=== PATIENT | female | born 1975 | race Caucasian/White ===

== ENCOUNTER 2016-10-13 09:22 | Emergency (ER) | payer OTHER ==
[2016-10-13 09:27] VITALS: BP 156/91; PULSE 82; TEMP 98.3; BMI 29.2
--- NOTE | 2016-10-13 10:18 | PDOC ---
History of Present Illness - General Chief Complaint: Ear Problem Stated Complaint: EAR PAIN Time Seen by Provider: 10/13/16 09:38 History Source: Patient Exam Limitations: No Limitations - History of Present Illness Initial Comments: 10/13/16 10:12 Patient is here with complaints of right ear pain 3-4 days. Denies fever, denies drainage, denies any other symptoms including cough cold symptoms or sore throat. Uses Q-tips to clean ears Timing/Duration: unsure Severity: mild Associated Symptoms: reports: denies symptoms Past History - Travel Traveled outside of the country in the last 30 days: No Close contact w/someone who was outside of country & ill: No - Past Medical History Allergies/Adverse Reactions: Allergies Allergy/AdvReac Type Severity Reaction Status Date / Time No Known Allergies Allergy Verified 10/13/16 09:26 Home Medications: Ambulatory Orders Metoprolol Succinate [Toprol XL -] 25 mg PO DAILY 02/04/14 HTN: Yes Suicide Attempt (Hx): No - Immunization History Immunization Up to Date: Yes - Psycho/Social/Smoking Cessation Hx Anxiety: No Suicidal Ideation: No Smoking History: Never smoked Number of Cigarettes Smoked Daily: 0 Cigars Per Day: 0 Hx Alcohol Use: No Drug/Substance Use Hx: No Substance Use Type: None Review of Systems - Review of Systems Able to Perform ROS?: Yes Is the patient limited [place] proficient: Yes Constitutional: Yes: See HPI. No: Symptoms Reported, Fever HEENTM: Yes: Symptoms Reported, See HPI, Ear Pain Respiratory: No: Symptoms reported Musculoskeletal: Yes: Symptoms Reported Integumentary: Yes: Symptoms Reported All Other Systems: Reviewed and Negative *Physical Exam - Vital Signs Last Vital Signs Temp Pulse Resp BP Pulse Ox 98.3 F 82 20 156/91 98 10/13/16 09:23 10/13/16 09:23 10/13/16 09:23 10/13/16 09:23 10/13/16 09:23 - Physical Exam General Appearance: Yes: Nourished, Appropriately Dressed. No: Apparent Distress HEENT: positive: SAUL, Normal ENT Inspection, Pharynx Normal. negative: TMs Normal (right TM obscured with hard Cerumen left TM intact and good visual benítez landmarks intact) Neck: positive: Supple. negative: Lymphadenopathy (R), Lymphadenopathy (L) Respiratory/Chest: positive: Lungs Clear, Normal Breath Sounds Musculoskeletal: positive: Normal Inspection Extremity: positive: Normal Capillary Refill, Normal Inspection, Normal Range of Motion Integumentary: positive: Normal Color, Dry, Warm Neurologic: positive: employment specialist II-XII NML intact, Fully Oriented, Alert, Normal Mood/ Affect, Normal Response, Motor Strength 11/09 Medical Decision Making - Medical Decision Making 10/13/16 10:14 Cerumenosis, irrigated with saline *DC/Admit/Observation/Transfer Diagnosis at time of Disposition: Impacted cerumen Qualifiers: Laterality: right Qualified Code(s): H61.21 - Impacted cerumen, right ear - Discharge Dispostion Disposition: HOME Condition at time of disposition: Stable Admit: No - Patient Instructions Printed Discharge Instructions: DI for Removal of Foreign Body From Ear Additional Instructions: Do not use Q-tips, or any other small objects on the inner aspect of the ear canal - may only use Q-tips only on the outside to clean ears Ear wax may be packed by use of Q-tips to the inner canal and become hardened May use hydrogen peroxide 3 times a week to continued keep ear wax soft and able to expel Rinse in shower after hydrogen peroxide instillation to wash ear wax out [id number] preparations also assist in wax buildup Aloe up with private physician or ear nose and throat doctor as needed
== END 2016-10-13 10:51 | disposition home or self-care (01) ==
LOC: JERFT 09:22
PROC: 3E1B78Z Irrigation of Ear using Irrigating Substance, Via Natural or Artificial Opening (ICD-10-PCS; principal; 2016-10-13)
DX: H61.21 Impacted cerumen, right ear (principal)
CPT/HCPCS: 69209; 99281-25

== ENCOUNTER 2017-03-07 12:15 | Emergency (ER) | payer OTHER ==
[2017-03-07 12:18] VITALS: BMI 30.2
[2017-03-07] MEDS ORDERED: KETOROLAC TROMETHAMINE 30 MG/1 ML VIAL IVPUSH ONE (12:58)
[2017-03-07 13:15] LABS: URINE APPEARANCE SLCLOUDY; URINE BILIRUBIN NEGATIVE (NEGATIVE); URINE BLOOD NEGATIVE (NEGATIVE); URINE COLOR LTYELLOW; URINE GLUCOSE (UA) NEGATIVE (NEGATIVE); URINE KETONE 1+ (NEGATIVE); URINE LEUK ESTERASE NEGATIVE (NEGATIVE); URINE NITRITE NEGATIVE (NEGATIVE); URINE PROTEIN NEGATIVE (NEGATIVE); URINE UROBILINOGEN NEGATIVE mg/dL (0.2-1.0)
[2017-03-07 13:16] LABS: BASOPHIL 0.6 % (0-2.0); EOSINOPHIL 2.2 % (0-4.5); MCH 24.2 pg (25.7-33.7); MCHC 32.7 g/dl (32.0-36.0); MEAN CELL VOLUME 74.1 fl (80-96); MEAN PLT VOLUME 6.9 fl (7.5-11.1); NEUTROPHILS 70.6 % (42.8-82.8); PLATELET COUNT 354 K/MM3 (134-434); RDW 18.5 % (11.6-15.6); WHITE BLOOD COUNT 11.4 K/mm3 (4.0-10.0)
[2017-03-07] MEDS ORDERED: KETOROLAC TROMETHAMINE 30 MG/1 ML VIAL ONE (13:23)
[2017-03-07 13:40] LABS: ALBUMIN 4.1 g/dl (3.4-5.0); ALK PHOS 75 U/L (45-117); ANION GAP 10 (8-16); BILIRUBIN,TOTAL 0.5 mg/dL (0.2-1.0); CALCIUM 8.8 mg/dL (8.5-10.1); CO2 26 mmol/L (21-32); CREATININE 0.6 mg/dL (0.55-1.02); GLUCOSE,RANDOM 99 mg/dL (74-106); SGOT/AST 15 U/L (15-37); SGPT/ALT 28 U/L (12-78); TOT PROT 7.8 g/dl (6.4-8.2)
--- NOTE | 2017-03-07 14:03 | PDOC ---
History of Present Illness - General Chief Complaint: Pain Stated Complaint: PAIN/ BACK, ABD Time Seen by Provider: 03/07/17 12:43 History Source: Patient Exam Limitations: No Limitations - History of Present Illness Travel History: No Initial Comments: 03/07/17 13:59 41-year-old female presents the ED with gradually worsening left lower quadrant pain that she describes a sharp and intermittent worsened with urination. Patient denies history of renal colic, recent UTI, fever, chills but does state mild nausea and when the pain comes it causes her to feel faint. Patient denies medical history, recent travel, fever, chills diarrhea, or recent sick contacts. Patient denies irregular menses and states history of ovarian cyst as per her last ultrasound approximately one year ago. Timing/Duration: reports: constant Quality: reports: moderate, sharpness Abdominal Pain Onset Location: reports: LLQ, periumbilical (left), flank (left) Pain Radiation: reports: no radiation Activities at Onset: reports: none Aggravating Factors: improves with: Voiding Alleviating Factors: worse with: None Past History - Travel Traveled outside of the country in the last 30 days: No Close contact w/someone who was outside of country & ill: No - Past Medical History Allergies/Adverse Reactions: Allergies Allergy/AdvReac Type Severity Reaction Status Date / Time No Known Allergies Allergy Verified 03/07/17 12:18 Home Medications: Ambulatory Orders NK [No Known Home Medication] 03/07/17 HTN: Yes Suicide Attempt (Hx): No - Immunization History Immunization Up to Date: Yes - Psycho/Social/Smoking Cessation Hx Anxiety: No Suicidal Ideation: No Smoking History: Never smoked Number of Cigarettes Smoked Daily: 0 Cigars Per Day: 0 Information on smoking cessation initiated: No Hx Alcohol Use: No Drug/Substance Use Hx: No Substance Use Type: None Patient Lives Alone: No Lives with/in: spouse/SO Review of Systems - Review of Systems Able to Perform ROS?: Yes Constitutional: No: Symptoms Reported HEENTM: No: Symptoms Reported Respiratory: No: Symptoms reported ABD/GI: Yes: Nausea, Abdominal cramping. No: Diarrhea, Poor Appetite, Vomiting : No: Symptoms Reported Musculoskeletal: No: Symptoms Reported Integumentary: No: Symptoms Reported Neurological: No: Symptoms reported Endocrine: No: Symptoms Reported Hematologic/Lymphatic: No: Symptoms Reported *Physical Exam - Vital Signs Last Vital Signs Temp Pulse Resp BP Pulse Ox 98.3 F 81 18 148/89 99 03/07/17 12:17 03/07/17 12:17 03/07/17 12:17 03/07/17 12:17 03/07/17 12:17 - Physical Exam General Appearance: Yes: Nourished, Appropriately Dressed. No: Apparent Distress HEENT: negative: Pale Conjunctivae Neck: positive: Supple Respiratory/Chest: positive: Lungs Clear, Normal Breath Sounds. negative: Respiratory Distress, Accessory Muscle Use Cardiovascular: positive: Regular Rhythm, Regular Rate. negative: Murmur Gastrointestinal/Abdominal: positive: Soft, Tenderness (left lower quadrant and left quadrant ) Musculoskeletal: negative: CVA Tenderness, CVA Tenderness (L) Extremity: positive: Normal Capillary Refill. negative: Pedal Edema Integumentary: positive: Normal Color, Warm, Moist Neurologic: positive: Normal Mood/Affect, Motor Strength 5/5 (ambulatory) ED Treatment Course - LABORATORY CBC & Chemistry Diagram: 03/07/17 12:55 03/07/17 12:55 - ADDITIONAL ORDERS Additional order review: Laboratory Results 03/07/17 03/07/17 13:00 12:55 Sodium 135 L Potassium 3.7 Chloride 99 Carbon Dioxide 26 Anion Gap 10 BUN 14 D Creatinine 0.6 Creat Clearance w eGFR > 60 Random Glucose 99 Calcium 8.8 Total Bilirubin 0.5 D AST 15 D ALT 28 D Alkaline Phosphatase 75 D Total Protein 7.8 Albumin 4.1 Urine Color Ltyellow Urine Appearance Slcloudy Urine pH 6.0 Urine Protein Negative Urine Glucose (UA) Negative Urine Ketones 1+ H Urine Blood Negative Urine Nitrite Negative Urine Bilirubin Negative Urine Urobilinogen Negative Ur Leukocyte Esterase Negative Urine HCG, Qual Negative 03/07/17 12:55 RBC 5.30 H MCV 74.1 L MCHC 32.7 RDW 18.5 H D MPV 6.9 L Neutrophils % 70.6 Lymphocytes % 19.3 D Monocytes % 7.3 Eosinophils % 2.2 Basophils % 0.6 - RADIOLOGY Radiology Studies Ordered: Category Date Time Status PELVIC / BLADDER US [US] Stat Ultrasound 03/07/17 13:00 Ordered - Medications Given in the ED: ED Medications Discontinued Medications Generic Name Dose Route Start Last Admin Trade Name Freq PRN Reason Stop Dose Admin Ketorolac Tromethamine 30 mg 03/07/17 12:58 03/07/17 13:27 Toradol Injection - IVPUSH 03/07/17 12:59 30 mg ONCE ONE Administration Medical Decision Making - Medical Decision Making 03/07/17 14:05 Patient is here with complaints of left suprapubic pain radiating to her left upper quadrant. Patient exam had reproducible pain to region without CVA tenderness. Patient concerning for renal colic versus ovarian cyst versus torsion versus UTI. Patient with labs, urine, urine and Toradol along with fluids. Patient ordered for imaging once labs are reviewed. 03/07/17 14:08 Laboratory Tests 03/07/17 03/07/17 03/07/17 12:55 12:55 13:00 WBC 11.4 H D Hgb 12.8 Hct 39.2 Neutrophils % 70.6 Sodium 135 L Potassium 3.7 Chloride 99 Carbon Dioxide 26 Anion Gap 10 BUN 14 D Creatinine 0.6 Random Glucose 99 AST 15 D ALT 28 D Urine Ketones 1+ H Urine HCG, Qual Negative Pt ordered for ultrasound and 1L of ns iv 03/07/17 15:30 Ultrasound shows a prominent elongated uterus was normal thickness of endometrial stripe Nabothian cyst measuring 2 x 1.7 centimeters. Both ovaries appear unremarkable. There is no free fluid in the cul-de-sac. Patient will be discharged home. patient has no complaints presently *DC/Admit/Observation/Transfer Diagnosis at time of Disposition: Abdominal tenderness of left lower quadrant Qualifiers: Presence of rebound: present Qualified Code(s): R10.824 - Left lower quadrant rebound abdominal tenderness - Discharge Dispostion Disposition: HOME Condition at time of disposition: Improved - Referrals Referrals: Teresa Sinha MD [Primary Care Provider] - - Patient Instructions Printed Discharge Instructions: DI for Abdominal Pain-Adult Additional Instructions: The Ultrasound and urine appear normal. I recommend to increase water intake and urine activity. If your symptoms return or worsen please come back to the ER . otherwise follow-up with your primary care physician.
[2017-03-07] MEDS ORDERED: SODIUM CHLORIDE 1,000 ML IV STA (14:08)
[2017-03-07 15:51] VITALS: BP 123/78; PULSE 78; TEMP 98.1
== END 2017-03-07 15:51 | disposition home or self-care (01) ==
LOC: JER 12:15
PROC: 3E0333Z Introduction of Anti-inflammatory into Peripheral Vein, Percutaneous Approach (ICD-10-PCS; principal; 2017-03-07)
PROC: 3E0337Z Introduction of Electrolytic and Water Balance Substance into Peripheral Vein, Percutaneous Approach (ICD-10-PCS; 2017-03-07)
DX: R10.824 Left lower quadrant rebound abdominal tenderness (principal); I10 Essential (primary) hypertension
CPT/HCPCS: 36415; 76856-TC; 80053; 81003; 84703; 85025; 99282-25

== ENCOUNTER 2017-04-25 23:19 | Emergency (ER) | payer OTHER ==
[2017-04-25 23:40] VITALS: TEMP 97.8; BMI 32.1
[2017-04-26] MEDS ORDERED: ASPIRIN 81 MG CHEWABLE TABLETS PO ONE (00:05)
--- NOTE | 2017-04-26 00:06 | PDOC ---
Attending Attestation - Resident Resident Name: Jeffrey Mercedes - ED Attending Attestation I have performed the following: I have examined & evaluated the patient, The case was reviewed & discussed with the resident, I agree w/resident's findings & plan, Exceptions are as noted - HPI HPI: 04/26/17 00:05 Pt with h/o HtN with c/o chest pain radiating to left side. - Physicial Exam PE: 04/26/17 00:06 *Physical Exam General Appearance: Yes: Appropriately Dressed. No: Apparent Distress, Intoxicated HEENT: positive: EOMI, SAUL, Normal ENT Inspection, Normal Voice, TMs Normal, Pharynx Normal. negative: Pale Conjunctivae, Photophobia, Scleral Icterus (R), Scleral Icterus (L) Neck: positive: Trachea midline, Normal Thyroid, Supple. negative: Tender, Rigid, Carotid bruit, Stridor, Lymphadenopathy (R), Lymphadenopathy (L), Thyromegaly Respiratory/Chest: positive: Lungs Clear, Normal Breath Sounds. negative: Chest Tender, Respiratory Distress, Accessory Muscle Use, Labored Respiration, RES, Crackles, Rales, Rhonchi, Stridor, Wheezing, Dullness Cardiovascular: positive: Regular Rhythm, Regular Rate, S1, S2. negative: Edema , JVD, Murmur, Bradycardia, Tachycardia Vascular Pulses: Dorsalis-Pedis (R): 2+, Doralis-Pedis (L): 2+ Gastrointestinal/Abdominal: positive: Normal Bowel Sounds, Flat, Soft. negative : Tender, Organomegaly, Pulsatile Mass, Increased Bowel Sounds, Decreased BS, Distended, Guarding, Rebound, Hernia, Hepatomegaly, Spleenomegaly Lymphatic: negative: Adenopathy, Tenderness Musculoskeletal: positive: Normal Inspection. negative: CVA Tenderness, Decreased Range of Motion Extremity: positive: Normal Capillary Refill, Normal Inspection, Normal Range of Motion, Pelvis Stable. negative: Tender, Pedal Edema, Swelling, Erythema Integumentary: positive: Normal Color, Dry, Warm. negative: Cyanotic, Erythema , Jaundice, Rash Neurologic: positive: senior loss control specialist II-XII NML intact, Fully Oriented, Alert, Normal Mood/ Affect, Motor Strength 5/5. negative: EOM Palsy, Facial Droop, Sensory Deficit Discharge Disposition - Discharge Dispostion Disposition: HOME Condition at time of disposition: Stable Last Admission D/C Date: 04/04/08 Admit: No
--- NOTE | 2017-04-26 00:48 | PDOC ---
History of Present Illness - General Chief Complaint: Chest Pain Stated Complaint: CHEST PAIN Time Seen by Provider: 04/25/17 23:33 History Source: Patient Exam Limitations: Language Barrier (Kettle Cook [id number]) - History of Present Illness Initial Comments: 04/26/17 00:27 The patient is a 42F with a PMH of HTN who presents to the ED with complaints of L sided symptoms. The patient states that all of her symptoms started yesterday afternoon while she was working. 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 She states that she developed chest pressure that does not radiate anywhre and is L sided. She is also complaining of L sided head, arm, and leg numbness. She is complaining of L sided abdominal pain that does not feel like her previous renal calculi, but radiates from her anterior L abdomen posteriorly. The patient states that this has never happened before. Past History - Past Medical History Allergies/Adverse Reactions: Allergies Allergy/AdvReac Type Severity Reaction Status Date / Time No Known Allergies Allergy Verified 04/26/17 02:17 Home Medications: Ambulatory Orders NK [No Known Home Medication] 03/07/17 HTN: Yes - Immunization History Immunization Up to Date: Yes - Suicide/Smoking/Psychosocial Hx Smoking History: Never smoked Have you smoked in the past 12 months: No Number of Cigarettes Smoked Daily: 0 Cigars Per Day: 0 Information on smoking cessation initiated: No Hx Alcohol Use: No Drug/Substance Use Hx: No Substance Use Type: None Review of Systems - Review of Systems Able to Perform ROS?: Yes Is the patient limited Irish proficient: No Constitutional: No: Chills, Fever HEENTM: No: Blurred Vision, Double Vision, Ear Discharge Respiratory: No: Cough Cardiac (ROS): No: Chest Pain ABD/GI: Yes: Nausea. No: Constipated, Diarrhea, Vomiting : No: Burning, Dysuria Musculoskeletal: No: Back Pain, Muscle Pain Integumentary: No: Bruising, Dryness, Flushing, Rash Neurological: Yes: Numbness. No: Headache, Tingling, Weakness Psychiatric: No: Sleep Pattern Change, Mood Swings *Physical Exam - Vital Signs Last Vital Signs Temp Pulse Resp BP Pulse Ox 97.8 F 70 20 166/78 97 04/25/17 23:39 04/25/17 23:39 04/25/17 23:39 04/25/17 23:39 04/25/17 23:39 - Physical Exam General Appearance: Yes: Nourished, Appropriately Dressed HEENT: positive: Normal Voice, Hearing Grossly Normal Respiratory/Chest: positive: Lungs Clear, Normal Breath Sounds. negative: Chest Tender, Respiratory Distress, Crackles, Rales, Rhonchi, Stridor, Wheezing Cardiovascular: positive: Regular Rhythm, Regular Rate, S1, S2. negative: Diastolic Murmur, Systolic Murmur Gastrointestinal/Abdominal: positive: Tender (LLQ tenderness to deep palpation) , Flat, Soft Musculoskeletal: negative: CVA Tenderness, CVA Tenderness (R), CVA Tenderness (L ) Extremity: negative: Swelling, Calf Tenderness Integumentary: positive: Dry, Warm. negative: Clammy, Ecchymosis Neurologic: positive: autopsy pathologist II-XII NML intact, Fully Oriented, Alert, Normal Mood/ Affect, Motor Strength 5/5, Respond to painful stimul, Responsive. negative: Abnormal Cranial NS, EOM Palsy, Facial Droop, Numbness, Sensory Deficit, Confused, Disoriented, Depressed Affect Heart Score/ECG Review - History History: Slightly suspicious - Electrocardiogram EKG: Normal - Age Age: </= 45 - Risk Factors Risk Factors Heart Score: Yes Hx Hypertension Based on the list above the patient has:: 1-2 risk factors - Troponin Troponin: </= normal limit - Score Heart Score - Total: 1 - ECG Intrepretation Rhythm: Regular Rhythm - Riley Riley: Normal - ECG Impressions Normal ECG: Yes Comment:: 04/26/17 00:51 NSR Vent rate 81 QRS 84 QTC 457 ED Treatment Course - LABORATORY CBC & Chemistry Diagram: 04/26/17 00:53 04/26/17 00:53 - RADIOLOGY Radiology Studies Ordered: Category Date Time Status HEAD CT WITHOUT CONTRAST [CT] Stat CT Scan 04/26/17 00:06 Ordered CHEST PA & LAT [RAD] Stat Radiology 04/26/17 00:05 Ordered Medical Decision Making - Medical Decision Making 04/26/17 00:51 The patient is a 42F who presents with L sided numbness and tingling in her face , head, arm and leg with L sided chest pressure and L abdominal pain. I have low suspicion for a TIA/CVA and I also have low suspicion for a cardiac event, confirmed with a normal EKG. However, due to the onset and atypical presentation I will order the chest pain protocol in addition to a head CT. I will reassess when labs/imaging return. 04/26/17 01:[address] read. 04/26/17 02:59 Patient sleeping comfortably in bed. All labs WNL including cardiac labs. Pending CT read. 04/26/17 04:02 CT is negative for any acute cranial pathology. CXR is negative. I have instructed the patient to follow up with her PCP in 2-3 days. *DC/Admit/Observation/Transfer Diagnosis at time of Disposition: Pain - Discharge Dispostion Disposition: HOME Condition at time of disposition: Stable Admit: No - Referrals Referrals: Teresa Sinha MD [Primary Care Provider] - - Patient Instructions Additional Instructions: Please return to the ER if symptoms progress, worsen, or new symptoms arise. Please follow up with your primary care doctor in 2-3 days. Please take ibuprofen or tylenol as needed for pain. Vuelve a la sukhjinder de emergencias si los sntomas progresan, empeoran o surgen nuevos sntomas. Por favor, rohit un seguimiento con heredia mdico de atencin primaria en 2-3 armendariz. [place] ibuprofeno o tylenol segn sea necesario para el dolor.
[2017-04-26 01:05] LABS: BASOPHIL 1.1 % (0-2.0); EOSINOPHIL 3.8 % (0-4.5); MCH 25.3 pg (25.7-33.7); MCHC 33.3 g/dl (32.0-36.0); MEAN CELL VOLUME 76.1 fl (80-96); MEAN PLT VOLUME 7.1 fl (7.5-11.1); NEUTROPHILS 58.2 % (42.8-82.8); PLATELET COUNT 350 K/MM3 (134-434); RDW 15.4 % (11.6-15.6); WHITE BLOOD COUNT 9.2 K/mm3 (4.0-10.0)
[2017-04-26 01:19] LABS: INR 1.01 (0.82-1.09); PROTHROMBIN TIME (PATIENT) 11.4 SEC (9.98-11.88)
[2017-04-26 01:34] LABS: ALBUMIN 3.6 g/dl (3.4-5.0); ANION GAP 10 (8-16); BILIRUBIN,TOTAL 0.3 mg/dL (0.2-1.0); CALCIUM 8.6 mg/dL (8.5-10.1); CO2 25 mmol/L (21-32); CREATININE 0.5 mg/dL (0.55-1.02); GLUCOSE,RANDOM 102 mg/dL (74-106); MAGNESIUM 2.3 mg/dL (1.8-2.4); SGOT/AST 10 U/L (15-37); SGPT/ALT 20 U/L (12-78); TOT PROT 7.1 g/dl (6.4-8.2)
[2017-04-26 01:37] LABS: ALK PHOS 70 U/L (45-117); CPK 77 IU/L (26-192); TROPONIN I < 0.02 ng/ml (0.00-0.05)
[2017-04-26] MEDS ORDERED: ASPIRIN 81 MG CHEWABLE TABLETS ONE (02:09)
[2017-04-26 02:17] VITALS: BP 161/90; PULSE 68
[2017-04-26] MEDS ORDERED: hydrALAZINE HCL 10 MG TABLET PO ONE (03:29)
[2017-04-26] MEDS ORDERED: hydrALAZINE HCL 25 MG TABLET (FP) ONE (03:35)
[2017-04-26] MEDS ORDERED: hydrALAZINE HCL 25 MG TABLET (FP) PO ONE (03:36)
--- NOTE | 2017-04-27 13:15 | EKG ---
Test Reason : Blood Pressure : / mmHG Vent. Rate : 081 BPM Atrial Rate : 081 BPM P-R Int : 150 ms QRS Dur : 084 ms QT Int : 394 ms P-R-T Axes : 045 027 058 degrees QTc Int : 457 ms NORMAL SINUS RHYTHM WITH SINUS ARRHYTHMIA NORMAL ECG WHEN COMPARED WITH ECG OF 07-MAY-2014 07:51, VENT. RATE HAS INCREASED BY 27 BPM QT HAS LENGTHENED CLINICAL CORRELATION IS RECOMMENDED BASELINE ARTIFACT Confirmed by СЕРГЕЙ BRAND MD ([id number]) on 04/27/2017 1:15:19 PM Referred By: Confirmed By:СЕРГЕЙ BRAND MD
== END 2017-04-26 04:16 | disposition home or self-care (01) ==
LOC: JER 23:19
PROC: 3E033NZ Introduction of Analgesics, Hypnotics, Sedatives into Peripheral Vein, Percutaneous Approach (ICD-10-PCS; principal; 2017-04-25)
DX: M54.12 Radiculopathy, cervical region (principal)
CPT/HCPCS: 36415; 70450-TC; 71020-TC; 80053; 82550; 83735; 84484; 84703; 85025; 85610; 93005; 93010; 99283-25

== ENCOUNTER 2017-04-27 11:42 | Emergency (ER) | payer OTHER ==
[2017-04-27 11:47] VITALS: BMI 32.1
--- NOTE | 2017-04-27 12:09 | PDOC ---
History of Present Illness - General Chief Complaint: Chest Pain Stated Complaint: CHEST PAIN Time Seen by Provider: 04/27/17 11:53 History Source: Patient - History of Present Illness Initial Comments: 04/27/17 13:20 42F with pmh of HTN presents with chest, neck pain and headache all located on the left side. This is her second visit regarding this pain, all cardiac work up then was negative. No radiation down arm, pain reproducible by palpation, relieved by massage. Took some advil which also relieved the pain. 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 Past History - Past Medical History Allergies/Adverse Reactions: Allergies Allergy/AdvReac Type Severity Reaction Status Date / Time No Known Allergies Allergy Verified 04/27/17 11:47 Home Medications: Ambulatory Orders Diazepam [Valium] 5 mg PO Q8H PRN #15 tablet MDD 3 pills 04/27/17 HTN: Yes - Immunization History Immunization Up to Date: Yes - Suicide/Smoking/Psychosocial Hx Smoking History: Never smoked Have you smoked in the past 12 months: No Number of Cigarettes Smoked Daily: 0 Cigars Per Day: 0 Hx Alcohol Use: No Drug/Substance Use Hx: No Substance Use Type: None *Physical Exam - Vital Signs Last Vital Signs Temp Pulse Resp BP Pulse Ox 98.5 F 85 18 154/92 100 04/27/17 11:43 04/27/17 11:43 04/27/17 11:43 04/27/17 11:43 04/27/17 11:43 ED Treatment Course - LABORATORY CBC & Chemistry Diagram: 04/27/17 12:30 04/27/17 12:30 - ADDITIONAL ORDERS Additional order review: Laboratory Results 04/27/17 04/27/17 12:38 12:30 Sodium 136 Potassium 3.9 Chloride 103 Carbon Dioxide 28 Anion Gap 5 L BUN 10 Creatinine 0.6 Creat Clearance w eGFR > 60 Random Glucose 115 H Calcium 8.8 Total Bilirubin 0.3 AST 7 L D ALT 21 Alkaline Phosphatase 75 Total Protein 7.8 Albumin 4.0 Urine Color Yellow Urine Appearance Slcloudy Urine pH 7.0 Urine Protein Negative Urine Glucose (UA) Negative Urine Ketones Negative Urine Blood Negative Urine Nitrite Negative Urine Bilirubin Negative Urine Urobilinogen Negative Urine HCG, Qual Negative 04/27/17 12:30 RBC 5.32 H MCV 75.1 L MCHC 33.3 RDW 15.8 H MPV 6.6 L Neutrophils % 78.3 D Lymphocytes % 14.8 D Monocytes % 5.8 Eosinophils % 0.6 D Basophils % 0.5 - Medications Given in the ED: ED Medications Discontinued Medications Generic Name Dose Route Start Last Admin Trade Name Juan PRN Reason Stop Dose Admin Ibuprofen 800 mg 04/27/17 13:36 04/27/17 13:56 Caldolor Injection - IVPB 04/27/17 13:37 800 mg ONCE ONE Administration Medical Decision Making - Medical Decision Making 04/27/17 14:21 42F pmh of htn with headache neck, chest and back pain. Likely muskuloskeletal. relieved by nsaid and massage. Likely carpal tunnel vs radiculopathy will give rx for valium Follow up with Appoiontmeent with dr. Mtz D/c *DC/Admit/Observation/Transfer Diagnosis at time of Disposition: Musculoskeletal chest pain, Sprain of trapezoid ligament, Radiculopathy - Discharge Dispostion Disposition: HOME Admit: No
--- NOTE | 2017-04-27 12:36 | PDOC ---
Attending Attestation - Resident Resident Name: Mitesh Peralta - ED Attending Attestation I have performed the following: I have examined & evaluated the patient, The case was reviewed & discussed with the resident, I agree w/resident's findings & plan, Exceptions are as noted - HPI HPI: 04/27/17 14:21 42 YO F WITH H/O HTN, HERE WITH C/O LEFT UPPER NECK BACKPAIN. 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 WAS SEEN YESTERDAY FOR SAME PAIN. HAD APPT SCHEDULED WITH DR. VENTURA NEXT WEEK. CURRENTLY ALSO C/O CHEST PAIN RADIATING UP TO NECK , WORSE WITH MOVEMENT. NO F/C NO FAMILY H/O CAD. HAS HAD STRESS TEST 4 YRS AGO REPORTEDLY NEGATIVE. NO FAMILY H/O CAD. NO F/C NO LEG SWELLING PAIN NOTPLEURITIC. YESTERDAY IN ED PT HAD HEAD CT, AND CXR LABS NORMAL. - Physicial Exam PE: 04/27/17 14:23 ON EXAM AWAKE ALERT LUNGS CLEAR BILAT, CHEST WALL TTP. POSTERIOR TRAPEZIAL SPASM AND PAIN. TTP. HEART RRR NOMRG. ABD SOFT NT ND. EXT WWP NO EDEMA. NUERO 5/ 5 ALL FOUR EXT. SENSATION INTACT. - Medical Decision Making 04/27/17 14:24 42 YO f WITH CHEST PAIN REPRODUCIBLE, KIZZY PAIN LIKLEY TRAPEZIAL SPASM AND SOME COMPONENT OF RADICULOPATHY, CARPAL TUNNEL. PLAN LABS EKG CXR NSAIDS, ALL NEGATIVE. WILL DC WITH FU WITH NEUROLOGY AND AUDREY SCHEDULED. WRIST SPLINT MUSCLE RELAXERS.
[2017-04-27 12:43] LABS: BASOPHIL 0.5 % (0-2.0); EOSINOPHIL 0.6 % (0-4.5); MCHC 33.3 g/dl (32.0-36.0); MEAN CELL VOLUME 75.1 fl (80-96); MEAN PLT VOLUME 6.6 fl (7.5-11.1); NEUTROPHILS 78.3 % (42.8-82.8); PLATELET COUNT 361 K/MM3 (134-434); RDW 15.8 % (11.6-15.6); WHITE BLOOD COUNT 10.4 K/mm3 (4.0-10.0)
[2017-04-27 12:50] LABS: URINE APPEARANCE SLCLOUDY; URINE BILIRUBIN NEGATIVE (NEGATIVE); URINE BLOOD NEGATIVE (NEGATIVE); URINE COLOR YELLOW; URINE GLUCOSE (UA) NEGATIVE (NEGATIVE); URINE KETONE NEGATIVE (NEGATIVE); URINE NITRITE NEGATIVE (NEGATIVE); URINE PROTEIN NEGATIVE (NEGATIVE); URINE UROBILINOGEN NEGATIVE mg/dL (0.2-1.0)
[2017-04-27 13:14] LABS: ANION GAP 5 (8-16); BILIRUBIN,TOTAL 0.3 mg/dL (0.2-1.0); CALCIUM 8.8 mg/dL (8.5-10.1); CO2 28 mmol/L (21-32); CREATININE 0.6 mg/dL (0.55-1.02); GLUCOSE,RANDOM 115 mg/dL (74-106); SGOT/AST 7 U/L (15-37); SGPT/ALT 21 U/L (12-78); TOT PROT 7.8 g/dl (6.4-8.2)
[2017-04-27 13:15] LABS: ALK PHOS 75 U/L (45-117)
[2017-04-27] MEDS ORDERED: IBUPROFEN 800 MG/8 ML IJ IVPB ONE ×2 (13:36→13:48)
[2017-04-27 15:23] LABS: CPK 63 IU/L (26-192); TROPONIN I < 0.02 ng/ml (0.00-0.05)
[2017-04-27 16:01] VITALS: BP 142/86; PULSE 80; TEMP 98.1
[2017-04-27 18:19] LABS: URINE LEUK ESTERASE 3+ (NEGATIVE)
[2017-04-27 19:47] LABS: URINE WBC 30-50 (3-5)
--- NOTE | 2017-04-28 10:59 | EKG ---
Test Reason : Blood Pressure : / mmHG Vent. Rate : 069 BPM Atrial Rate : 069 BPM P-R Int : 144 ms QRS Dur : 092 ms QT Int : 386 ms P-R-T Axes : 050 026 055 degrees QTc Int : 413 ms NORMAL SINUS RHYTHM NORMAL ECG WHEN COMPARED WITH ECG OF 25-APR-2017 23:37, NO SIGNIFICANT CHANGE WAS FOUND Confirmed by СЕРГЕЙ BRAND MD ([id number]) on 04/28/2017 10:58:51 AM Referred By: Confirmed By:СЕРГЕЙ BRAND MD
== END 2017-04-27 15:35 | disposition home or self-care (01) ==
LOC: JER 11:42
PROC: 3E0333Z Introduction of Anti-inflammatory into Peripheral Vein, Percutaneous Approach (ICD-10-PCS; principal; 2017-04-27)
DX: R78.9 Finding of unspecified substance, not normally found in blood (principal); S43.492A Other sprain of left shoulder joint, initial encounter; X50.0XXA Overexertion from strenuous movement or load, initial encounter; Y93.E9 Activity, other interior property and clothing maintenance; Y92.89 Other specified places as the place of occurrence of the external cause
CPT/HCPCS: 36415; 71020-TC; 80053; 81003; 81015; 82550; 84484; 84703; 85025; 93005; 93010; 96374; 99283-25

== ENCOUNTER 2017-08-27 14:54 | Emergency (ER) | payer OTHER ==
[2017-08-27 15:04] VITALS: BP 172/93; TEMP 98.5; BMI 29.0
--- NOTE | 2017-08-27 15:06 | PDOC ---
Rapid Medical Evaluation Time Seen by Provider: 08/27/17 15:01 Medical Evaluation: Allergies Allergy/AdvReac Type Severity Reaction Status Date / Time No Known Allergies Allergy Verified 08/27/17 15:00 08/27/17 15:03 I have performed a brief in-person evaluation of this patient. The patient presents with a chief complaint of: left sided headache and left chest pain Pertinent physical exam findings: BP-172/93, Lungs CTAB, S1S2, No m/r/g, CN2-12 grossly intact. I have ordered the following: EKG, labs The patient will proceed to the ED for further evaluation. Discharge Disposition - Diagnosis Chest pressure - Referrals - Patient Instructions - Post Discharge Activity
[2017-08-27 15:27] LABS: BASO % 0.7 % (0-2.0); EOS % 2.4 % (0-4.5); HEMATOCRIT 40.9 % (32.4-45.2); HEMOGLOBIN 13.4 GM/dL (10.7-15.3); LYMPH % 21.9 % (8-40); MCH 25.3 pg (25.7-33.7); MCHC 32.8 g/dl (32.0-36.0); MEAN CELL VOLUME 77.1 fl (80-96); MEAN PLT VOLUME 7.3 fl (7.5-11.1); MONO % 8.2 % (3.8-10.2); NEUT % 66.8 % (42.8-82.8); PLATELET COUNT 395 K/MM3 (134-434); RDW 15.8 % (11.6-15.6); WHITE BLOOD COUNT 11.8 K/mm3 (4.0-10.0)
[2017-08-27 15:47] LABS: ALBUMIN 4.1 g/dl (3.4-5.0); ANION GAP 7 (8-16); BLOOD UREA NITROGEN 10 mg/dL (7-18); CALCIUM 8.9 mg/dL (8.5-10.1); CHLORIDE 104 mmol/L (98-107); CO2 26 mmol/L (21-32); CREATININE 0.6 mg/dL (0.55-1.02); GLUCOSE,RANDOM 110 mg/dL (74-106); POTASSIUM 3.7 mmol/L (3.5-5.1); SGOT/AST 12 U/L (15-37); SGPT/ALT 28 U/L (12-78); SODIUM 137 mmol/L (136-145)
[2017-08-27 15:50] LABS: ALK PHOS 84 U/L (45-117); BILIRUBIN,TOTAL 0.4 mg/dL (0.2-1.0); TOT PROT 7.9 g/dl (6.4-8.2)
[2017-08-27 16:32] LABS: HCG,QUALITATIVE URINE NEGATIVE; URINE APPEARANCE SLCLOUDY; URINE BILIRUBIN NEGATIVE (NEGATIVE); URINE BLOOD NEGATIVE (NEGATIVE); URINE COLOR YELLOW; URINE GLUCOSE (UA) NEGATIVE (NEGATIVE); URINE KETONE NEGATIVE (NEGATIVE); URINE LEUK ESTERASE NEGATIVE (NEGATIVE); URINE NITRITE NEGATIVE (NEGATIVE); URINE PROTEIN NEGATIVE (NEGATIVE); URINE UROBILINOGEN NEGATIVE mg/dL (0.2-1.0)
--- NOTE | 2017-08-27 16:58 | PDOC ---
History of Present Illness - General Chief Complaint: Headache Stated Complaint: HEAD PRESSURE Time Seen by Provider: 08/27/17 15:01 History Source: Patient, Family, Teletype Installer Used Exam Limitations: Language Barrier - History of Present Illness Initial Comments: 08/27/17 16:51 42 y/o F with PMH HTN (non-compliant with amlodipine), hx headaches, who presents to the ED with headache and chest pain. As per pt, this AM pt developed a L temporal headache. The resultant pain is 9/10, intermittent, and feels like a strong "pressure" that radiates down the L side of her neck, and L chest. Pt states that the pain is a/w SOB and numbness in her LUE and LLE. Pain is mildly alleviated with ice. She also endorses nausea (without emesis), mild diaphoresis "at times," blurred vision, and photophobia. Pt denies other sx such as fever, chills, abdominal pain or diarrhea. No recent life stressors. Yesterday, pt states that she overexerted herself working out- she walked and rode a bike for an hour. 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 denies cigarette, alcohol, or recreational drug use 08/27/17 22:18 Past History - Past Medical History Allergies/Adverse Reactions: Allergies Allergy/AdvReac Type Severity Reaction Status Date / Time No Known Allergies Allergy Verified 08/27/17 15:00 Home Medications: Ambulatory Orders Amlodipine Besylate 5 mg PO DAILY 04/27/17 Diazepam [Valium] 5 mg PO Q8H PRN #15 tablet MDD 3 pills 04/27/17 HTN: Yes - Immunization History Immunization Up to Date: Yes - Suicide/Smoking/Psychosocial Hx Smoking History: Never smoked Have you smoked in the past 12 months: No Number of Cigarettes Smoked Daily: 0 Cigars Per Day: 0 Hx Alcohol Use: No Drug/Substance Use Hx: No Substance Use Type: None *Physical Exam - Vital Signs Last Vital Signs Temp Pulse Resp BP Pulse Ox 98.5 F 100 H 18 172/93 98 08/27/17 15:01 08/27/17 15:01 08/27/17 15:01 08/27/17 15:01 08/27/17 15:01 ED Treatment Course - LABORATORY CBC & Chemistry Diagram: 08/27/17 15:14 08/27/17 15:14 - ADDITIONAL ORDERS Additional order review: Laboratory Results 08/27/17 08/27/17 16:08 15:14 Sodium 137 Potassium 3.7 Chloride 104 Carbon Dioxide 26 Anion Gap 7 L BUN 10 Creatinine 0.6 Creat Clearance w eGFR > 60 Random Glucose 110 H Calcium 8.9 Total Bilirubin 0.4 D AST 12 L ALT 28 Alkaline Phosphatase 84 Creatine Kinase 64 Troponin I < 0.02 Total Protein 7.9 Albumin 4.1 Urine Color Yellow Urine Appearance Slcloudy Urine pH 8.0 Ur Specific [place] 1.010 Urine Protein Negative Urine Glucose (UA) Negative Urine Ketones Negative Urine Blood Negative Urine Nitrite Negative Urine Bilirubin Negative Urine Urobilinogen Negative Ur Leukocyte Esterase Negative Urine HCG, Qual Negative 08/27/17 15:14 RBC 5.30 H MCV 77.1 L MCHC 32.8 RDW 15.8 H MPV 7.3 L D Neutrophils % 66.8 Lymphocytes % 21.9 D Monocytes % 8.2 Eosinophils % 2.4 D Basophils % 0.7 Medical Decision Making - Medical Decision Making 08/27/17 18:47 42 y/o F with PMH HTN (non-compliant with amlodipine), hx headaches, who presents to the ED with headache and chest pain. Current differentials include TAVERA 2/2 poor BP control (noncompliant with amlodipine), migraine, musculoskeletal strain, temporal arteritis. Labs that have been ordered CBC CMP EKG ESR Will give the following 25mg Benadryl - followed by Reglan Tylenol 975mg x 1 1 L NS *DC/Admit/Observation/Transfer Diagnosis at time of Disposition: Headache - Discharge Dispostion Disposition: HOME Condition at time of disposition: Good - Referrals Referrals: Teresa Sinha MD [Primary Care Provider] - - Patient Instructions Printed Discharge Instructions: DI for Headache Additional Instructions: Please return if you have any new, worsening or concerning symptoms. Please follow up with your primary care physician and take your blood pressure medication as prescribed. Print Language: [place] - Post Discharge Activity
[2017-08-27] MEDS ORDERED: ACETAMINOPHEN 500 MG TABLET (FP) PO ONE (18:55)
[2017-08-27] MEDS ORDERED: ACETAMINOPHEN 325 MG TABLET (FP) ONE (19:01)
[2017-08-27] MEDS ORDERED: METOCLOPRAMIDE HCL INJECTION 10 MG/2 ML VIAL IVPUSH ONE ×2 (19:01→19:03)
[2017-08-27] MEDS ORDERED: SODIUM CHLORIDE 1,000 ML IV STA (19:03)
[2017-08-27] MEDS ORDERED: METOCLOPRAMIDE HCL INJECTION 10 MG/2 ML VIAL ONE (19:16)
--- NOTE | 2017-08-27 19:58 | PDOC ---
*Physical Exam - Vital Signs Last Vital Signs Temp Pulse Resp BP Pulse Ox 98.5 F 100 H 18 172/93 98 08/27/17 15:01 08/27/17 15:01 08/27/17 15:01 08/27/17 15:01 08/27/17 15:01 - Physical Exam Comments: 08/27/17 20:00 GENERAL: Awake, alert, and fully oriented, in no acute distress HEAD: No signs of trauma, normocephalic, atraumatic EYES: PERRLA, EOMI, sclera anicteric, conjunctiva clear ENT: Auricles normal inspection, hearing grossly normal, nares patent, oropharynx clear without exudates. Moist mucosa NECK: Normal ROM, supple, no lymphadenopathy, JVD, or masses LUNGS: No distress, speaks full sentences, clear to auscultation bilaterally HEART: Regular rate and rhythm, normal S1 and S2, no murmurs, rubs or gallops, peripheral pulses normal and equal bilaterally. EXTREMITIES: Normal inspection, Normal range of motion, no edema. No clubbing or cyanosis. NEUROLOGICAL: Cranial nerves II through XII grossly intact. Normal speech, normal gait, no focal sensorimotor deficits SKIN: Warm, Dry, normal turgor, no rashes or lesions noted. ED Treatment Course - LABORATORY CBC & Chemistry Diagram: 08/27/17 15:14 08/27/17 15:14 - ADDITIONAL ORDERS Additional order review: Laboratory Results 08/27/17 08/27/17 16:08 15:14 Sodium 137 Potassium 3.7 Chloride 104 Carbon Dioxide 26 Anion Gap 7 L BUN 10 Creatinine 0.6 Creat Clearance w eGFR > 60 Random Glucose 110 H Calcium 8.9 Total Bilirubin 0.4 D AST 12 L ALT 28 Alkaline Phosphatase 84 Creatine Kinase 64 Troponin I < 0.02 Total Protein 7.9 Albumin 4.1 Urine Color Yellow Urine Appearance Slcloudy Urine pH 8.0 Ur Specific [place] 1.010 Urine Protein Negative Urine Glucose (UA) Negative Urine Ketones Negative Urine Blood Negative Urine Nitrite Negative Urine Bilirubin Negative Urine Urobilinogen Negative Ur Leukocyte Esterase Negative Urine HCG, Qual Negative 08/27/17 15:14 RBC 5.30 H MCV 77.1 L MCHC 32.8 RDW 15.8 H MPV 7.3 L D Neutrophils % 66.8 Lymphocytes % 21.9 D Monocytes % 8.2 Eosinophils % 2.4 D Basophils % 0.7 - Medications Given in the ED: ED Medications Discontinued Medications Generic Name Dose Route Start Last Admin Trade Name Juan PRN Reason Stop Dose Admin Acetaminophen 975 mg 08/27/17 18:55 08/27/17 19:05 Tylenol - PO 08/27/17 18:56 975 mg ONCE ONE Administration Diphenhydramine HCl 25 mg 08/27/17 19:02 08/27/17 19:22 Benadryl Injection - IM 08/27/17 19:03 25 mg ONCE ONE Administration Metoclopramide HCl 10 mg 08/27/17 19:03 08/27/17 19:22 Reglan Injection - IVPUSH 08/27/17 19:04 10 mg ONCE ONE Administration Medical Decision Making - Medical Decision Making 08/27/17 19:58 42F with history of headaches and HTN here today with headache. Vital signs stable, notable for BP in 170s. Patient reassessed, says that she feels better. No longer has pain in her arm, neck or head. Vitals are now: 148/88 99% HR 84 RR 16 Will discharge with return precautions and follow up. *DC/Admit/Observation/Transfer Diagnosis at time of Disposition: Headache - Discharge Dispostion Disposition: HOME Condition at time of disposition: Good Admit: No - Referrals - Patient Instructions Printed Discharge Instructions: DI for Headache Additional Instructions: Please return if you have any new, worsening or concerning symptoms. Please follow up with your primary care physician and take your blood pressure medication as prescribed. Print Language: ENGLISH - Post Discharge Activity
[2017-08-27 20:19] VITALS: PULSE 76
--- NOTE | 2017-08-28 17:08 | EKG ---
Test Reason : Blood Pressure : / mmHG Vent. Rate : 076 BPM Atrial Rate : 076 BPM P-R Int : 144 ms QRS Dur : 092 ms QT Int : 380 ms P-R-T Axes : 048 021 059 degrees QTc Int : 427 ms NORMAL SINUS RHYTHM WITH SINUS ARRHYTHMIA NORMAL ECG WHEN COMPARED WITH ECG OF 27-APR-2017 11:50, NO SIGNIFICANT CHANGE WAS FOUND Confirmed by СЕРГЕЙ SAHA MD ([id number]) on 08/28/2017 5:07:53 PM Referred By: Confirmed By:СЕРГЕЙ SAHA MD
== END 2017-08-27 20:18 | disposition home or self-care (01) ==
LOC: JER 14:54
PROC: 3E033GC Introduction of Other Therapeutic Substance into Peripheral Vein, Percutaneous Approach (ICD-10-PCS; principal; 2017-08-27)
PROC: 3E023GC Introduction of Other Therapeutic Substance into Muscle, Percutaneous Approach (ICD-10-PCS; 2017-08-27)
DX: I10 Essential (primary) hypertension (principal); R51 Headache; Z91.14 Patient's other noncompliance with medication regimen
CPT/HCPCS: 36415; 80053; 81003; 82550; 84484; 84703; 85025; 85651; 93005; 93010; 96372; 96374; 99283-25

== ENCOUNTER 2018-02-02 13:45 | Emergency (ER) | payer SELFPAY ==
[2018-02-02 13:49] VITALS: TEMP 97.9; BMI 28.8
--- NOTE | 2018-02-02 14:15 | PDOC ---
History of Present Illness - General Chief Complaint: Blood Pressure Problem Stated Complaint: HIGH BLOOD PRESSURE Time Seen by Provider: 02/02/18 14:00 History Source: Patient - History of Present Illness Associated Symptoms: reports: other (today) Past History - Past Medical History Allergies/Adverse Reactions: Allergies Allergy/AdvReac Type Severity Reaction Status Date / Time No Known Allergies Allergy Verified 02/02/18 13:49 Home Medications: Ambulatory Orders Amlodipine Besylate 5 mg PO DAILY 04/27/17 COPD: No HTN: Yes - Immunization History Immunization Up to Date: Yes - Suicide/Smoking/Psychosocial Hx Smoking History: Never smoked Have you smoked in the past 12 months: No Number of Cigarettes Smoked Daily: 0 Cigars Per Day: 0 Hx Alcohol Use: No Drug/Substance Use Hx: No Substance Use Type: None Review of Systems - Review of Systems Respiratory: No: Shortness of Breath Cardiac (ROS): No: Chest Pain, Palpitations, Syncope ABD/GI: No: Nausea, Vomiting Neurological: No: Headache, Numbness, Tingling, Weakness, Dizziness *Physical Exam - Vital Signs Last Vital Signs Temp Pulse Resp BP Pulse Ox 97.9 F 74 18 176/89 99 02/02/18 13:46 02/02/18 13:46 02/02/18 13:46 02/02/18 13:46 02/02/18 13:46 - Physical Exam General Appearance: Yes: Appropriately Dressed. No: Apparent Distress Neck: positive: Supple Respiratory/Chest: positive: Lungs Clear, Normal Breath Sounds. negative: Respiratory Distress Cardiovascular: positive: Regular Rate, S1, S2 Gastrointestinal/Abdominal: positive: Soft. negative: Tender Integumentary: positive: Dry, Warm Neurologic: positive: Fully Oriented, Alert, Normal Mood/Affect, Motor Strength 5/5 Medical Decision Making - Medical Decision Making 02/02/18 14:11 42-year-old female, h/o HTN, on 5mg norvasc, here for evaluation after elevated blood pressure today. Patient states her blood pressure this a.m. was 154/90. At some point took her Norvasc and states that her rpt BP later on today was 170s over 90s. Patient states she might have had some dizziness earlier that has since resolved. No vertigo, headache, visual changes, focal weakness, chest pain or shortness of breath. States her BP usually in the 120s-130s systolic. No recent change in meds and continue to limit salt intake per pt. Patient well-appearing and stable in ED with initial blood pressure of 176/89, 164/93 on rpt. No evidence of complications at this time such as stroke, DC, etc. No intervention necessary in ED. Patient to continue her medication and discuss further evaluation/management with her PMD in the a.m. Reasons to return to ER. discussed with patient and family *DC/Admit/Observation/Transfer Diagnosis at time of Disposition: Elevated blood pressure reading - Discharge Dispostion Disposition: HOME Condition at time of disposition: Good - Referrals Referrals: Teresa Sinha MD [Primary Care Provider] - - Patient Instructions Printed Discharge Instructions: How to Monitor Your Blood Pressure at Home, DI for High Blood Pressure Additional Instructions: Blood pressure here was 164/93. As there was no complications at this time, there was no intervention necessary in ER. Please continue taking your medication and call your primary doctor in the a.m. for further evaluation If symptoms worsen, return to the ER - Post Discharge Activity
[2018-02-02 14:38] VITALS: BP 164/93; PULSE 72
== END 2018-02-02 14:15 | disposition home or self-care (01) ==
LOC: JER 13:45
DX: I10 Essential (primary) hypertension (principal)
CPT/HCPCS: 99282-25

== ENCOUNTER 2019-05-27 16:08 | Emergency (ER) | payer OTHER ==
--- NOTE | 2019-05-27 16:11 | PDOC ---
Rapid Medical Evaluation Time Seen by Provider: 05/27/19 16:10 Medical Evaluation: Allergies Allergy/AdvReac Type Severity Reaction Status Date / Time No Known Allergies Allergy Verified 02/02/18 13:49 05/27/19 16:10 Pt with complaints of: uri since this am Pt on brief exam: bp elevated ( did not take bp meds), lcta, breathing via nares pt ordered for: none pt to proceed to the ED 05/27/19 16:12 Discharge Disposition - Diagnosis URI (upper respiratory infection) - Referrals - Patient Instructions - Post Discharge Activity
[2019-05-27 16:14] VITALS: TEMP 97.9; BMI 31.1
[2019-05-27] MEDS ORDERED: IBUPROFEN 400 MG TABLET (FP) PO ONE ×2 (16:37→16:42)
[2019-05-27 16:45] VITALS: BP 163/97; PULSE 100
--- NOTE | 2019-05-27 16:49 | PDOC ---
History of Present Illness - General Chief Complaint: Cold Symptoms Stated Complaint: COUGH/SORE THROAT Time Seen by Provider: 05/27/19 16:10 History Source: Patient - History of Present Illness Timing/Duration: reports: other Severity: reports: moderate Past History - Past Medical History Allergies/Adverse Reactions: Allergies Allergy/AdvReac Type Severity Reaction Status Date / Time No Known Allergies Allergy Verified 05/27/19 16:14 Home Medications: Ambulatory Orders Amlodipine Besylate 5 mg PO DAILY 04/27/17 COPD: No HTN: Yes (non-compliant) - Immunization History Immunization Up to Date: Yes - Psycho Social/Smoking Cessation Hx Smoking History: Never smoked Have you smoked in the past 12 months: No Number of Cigarettes Smoked Daily: 0 Cigars Per Day: 0 Information on smoking cessation initiated: No Hx Alcohol Use: No Drug/Substance Use Hx: No Substance Use Type: None Review of Systems - Review of Systems Constitutional: No: Chills, Fever HEENTM: Yes: Nose Congestion, Throat Pain Respiratory: Yes: Cough. No: Shortness of Breath ABD/GI: No: Diarrhea, Nausea, Vomiting *Physical Exam - Vital Signs Last Vital Signs Temp Pulse Resp BP Pulse Ox 97.9 F 111 H 19 177/98 H 98 05/27/19 16:11 05/27/19 16:11 05/27/19 16:11 05/27/19 16:11 05/27/19 16:11 - Physical Exam General Appearance: Yes: Appropriately Dressed. No: Apparent Distress HEENT: positive: Normal ENT Inspection, Normal Voice, TMs Normal, Pharynx Normal , Scleral Icterus (R), Scleral Icterus (L) Neck: positive: Supple Respiratory/Chest: positive: Lungs Clear, Normal Breath Sounds. negative: Respiratory Distress Cardiovascular: positive: Regular Rate, S1, S2 Integumentary: positive: Dry, Warm Neurologic: positive: Fully Oriented, Alert, Normal Mood/Affect Medical Decision Making - Medical Decision Making 05/27/19 16:38 44-year-old female, history of hHTN, non-compliant with meds, here with sore throat with cough, rhinorrhea and body aches x several days. No sob, CP, f/c. See exam M/l viral syndrome No utility in flu swab BP elevated at triage (did not take meds today), asx from BP standpoint Rest of exam unremarkable -Dc w/ supportive tx Discharge - Discharge Information Problems reviewed: Yes Clinical Impression/Diagnosis: URI (upper respiratory infection) Qualifiers: URI type: unspecified viral URI Qualified Code(s): J06.9 - Acute upper respiratory infection, unspecified Condition: Good Disposition: HOME - Follow up/Referral - Patient Discharge Instructions Patient Printed Discharge Instructions: DI for Viral Upper Respiratory Infection -- Adult Additional Instructions: Rest and drink plenty of fluids and take [id number] medication for symptoms as discussed. Your blood pressure here was elevated. Please take blood pressure medication as soon as you get home Print Language: [place] - Post Discharge Activity Work/Back to School Note: Back to Work
== END 2019-05-27 16:55 | disposition home or self-care (01) ==
LOC: JERFT 16:08
DX: J06.9 Acute upper respiratory infection, unspecified (principal); I10 Essential (primary) hypertension
CPT/HCPCS: 99281-25

== ENCOUNTER 2022-01-16 10:56 | Emergency (ER) | payer OTHER ==
[2022-01-16 11:27] VITALS: BP 161/94; PULSE 98; TEMP 98.4; BMI 32.1
[2022-01-16] MEDS ORDERED: diazePAM 5 MG TABLET PO ONE (13:29)
[2022-01-16] MEDS ORDERED: KETOROLAC TROMETHAMINE 30 MG/1 ML VIAL IM ONE (13:29)
[2022-01-16] MEDS ORDERED: LIDOCAINE 5% TOPICAL PATCH TP ONE (13:29)
[2022-01-16] MEDS ORDERED: KETOROLAC TROMETHAMINE 30 MG/1 ML VIAL ONE ×2 (13:58→13:59)
[2022-01-16] MEDS ORDERED: LIDOCAINE 5% TOPICAL PATCH ONE (13:58)
[2022-01-16] MEDS ORDERED: diazePAM 5 MG TABLET ONE (13:58)
[2022-01-16] MEDS ORDERED: LIDOCAINE PATCH REMOVAL MC ONE (22:00)
== END 2022-01-16 15:28 | disposition home or self-care (01) ==
LOC: JERFT 10:56
PROC: 3E023GC Introduction of Other Therapeutic Substance into Muscle, Percutaneous Approach (ICD-10-PCS; principal; 2022-01-16)
DX: M54.31 Sciatica, right side (principal)
CPT/HCPCS: 72100-TC-FY; 99284-25

== ENCOUNTER 2022-05-26 07:53 | Emergency (ER) | payer OTHER ==
[2022-05-26 08:20] VITALS: BMI 33.2
[2022-05-26] MEDS ORDERED: ACETAMINOPHEN 1000 MG/100 ML BAG IVPB ONE (08:34)
[2022-05-26] MEDS ORDERED: ACETAMINOPHEN INJECTION 100 ML IVPB ONE (08:49)
[2022-05-26 08:53] LABS: EOS % 3.1 % (0-4.5); HEMATOCRIT 42.5 % (32.4-45.2); HEMOGLOBIN 14.6 GM/dL (10.7-15.3); LYMPH % 24.3 % (8-40); MCH 27.3 pg (25.7-33.7); MCHC 34.3 g/dl (32.0-36.0); MEAN CELL VOLUME 79.6 fl (80-96); MEAN PLT VOLUME 6.8 fl (7.5-11.1); MONO % 6.2 % (3.8-10.2); NEUT % 65.4 % (42.8-82.8); PLATELET COUNT 353 10^3/uL (134-434); RBC 5.34 M/mm3 (3.60-5.2); RDW 14.6 % (11.6-15.6); WHITE BLOOD COUNT 8.1 K/mm3 (4.0-10.0)
[2022-05-26 09:00] LABS: INR 1.01 (0.83-1.09); PROTHROMBIN TIME (PATIENT) 11.6 SEC (9.7-13.0)
[2022-05-26 09:02] LABS: ACTIVATED PTT 39.5 SECONDS (25.2-36.5)
[2022-05-26 09:23] LABS: ALBUMIN 4.1 g/dl (3.4-5.0); CALCIUM 8.8 mg/dL (8.5-10.1); MAGNESIUM 2.4 mg/dL (1.8-2.4)
[2022-05-26 09:25] LABS: CREATININE 0.6 mg/dL (0.55-1.3)
[2022-05-26 09:28] LABS: BILIRUBIN,TOTAL 0.4 mg/dL (0.2-1); TOT PROT 7.9 g/dl (6.4-8.2)
[2022-05-26] MEDS ORDERED: METOCLOPRAMIDE HCL INJECTION 10 MG/2 ML VIAL IVPB ONE (10:02)
[2022-05-26] MEDS ORDERED: SODIUM CHLORIDE 0.9% 500 ML INFUS.BAG IV ONE (10:03)
[2022-05-26] MEDS ORDERED: METOCLOPRAMIDE HCL INJECTION 10 MG/2 ML VIAL ONE (10:44)
[2022-05-26 12:47] VITALS: BP 175/87; PULSE 104; RESP 20; TEMP 98.3
== END 2022-05-26 13:00 | disposition home or self-care (01) ==
LOC: JER 07:53
PROC: 3E0333Z Introduction of Anti-inflammatory into Peripheral Vein, Percutaneous Approach (ICD-10-PCS; principal; 2022-05-26)
PROC: 3E033GC Introduction of Other Therapeutic Substance into Peripheral Vein, Percutaneous Approach (ICD-10-PCS; 2022-05-26)
PROC: 3E033GC Introduction of Other Therapeutic Substance into Peripheral Vein, Percutaneous Approach (ICD-10-PCS; 2022-05-26)
DX: R07.9 Chest pain, unspecified (principal); R51.9 Headache, unspecified
CPT/HCPCS: 0241U-QW; 36415; 70450-TC; 71045-TC-FY; 80053; 83735; 84484; 84703; 85025; 85610; 85730; 86850; 86900; 86901; 93005; 93010; 99285-25